=== PATIENT | female | born 1990 | race Two or more races ===

== ENCOUNTER → 2019-12-21 | Outpatient (CLI) | payer OTHER ==
[2019-12-21 16:19] LABS: BASO % 0.5 % (0.0-1.0); EOS # 0.1 10^3/uL (0.0-0.5); EOS % 1.7 % (0.0-3.0); HEMATOCRIT 37.7 % (36.0-47.0); HEMOGLOBIN 12.6 g/dl (12.0-15.5); LYMPH # 1.9 10^3/uL (1.5-5.0); LYMPH % 47.8 % (24.0-44.0); MEAN CORPUSCULAR HEMOGLOBIN 29.6 pg (27.0-33.0); MEAN CORPUSCULAR HGB CONC 33.4 g/dl (32.0-36.5); MEAN CORPUSCULAR VOLUME 88.5 fl (80.0-96.0); MONO # 0.3 10^3/uL (0.0-0.8); MONO % 8.4 % (0.0-5.0); NEUTROPHILS # 1.7 10^3/uL (1.5-8.5); NEUTROPHILS % 41.4 % (36.0-66.0); PLATELET COUNT, AUTOMATED 241 10^3/uL (150-450); RED BLOOD COUNT 4.26 10^6/uL (4.00-5.40)
[2019-12-21 16:28] LABS: ALBUMIN 3.8 GM/DL (3.2-5.2); ALT/SGPT 24 U/L (12-78); BILIRUBIN,TOTAL 0.8 MG/DL (0.2-1.0); BLOOD UREA NITROGEN 15 MG/DL (7-18); CALCIUM LEVEL 8.6 MG/DL (8.5-10.1); CARBON DIOXIDE LEVEL 25 MEQ/L (21-32); CHLORIDE LEVEL 108 MEQ/L (98-107); CREATININE FOR GFR 0.67 MG/DL (0.55-1.30); FERRITIN 18 NG/ML (8-252); FREE T4 1.02 NG/DL (0.76-1.46); GLOMERULAR FILTRATION RATE > 60.0 (>60); GLUCOSE, FASTING 85 MG/DL (70-100); IRON (FE) 124 UG/DL (50-170); PERCENT SATURATION 33.7 % (13.2-45.0); SODIUM LEVEL 140 MEQ/L (136-145); TOTAL 25(OH) VITAMIN D 17.5 NG/ML (30.0-100.0); TOTAL IRON BINDING CAPACITY 368 UG/DL (250-450); TOTAL PROTEIN 7.7 GM/DL (6.4-8.2)
== END ==
LOC: M LRY 11:06
PROVIDERS: ATTEND Physician Assistant
DX: Z13.29 Encounter for screening for other suspected endocrine disorder (principal)

== ENCOUNTER → 2020-09-01 | Outpatient (REF) | payer OTHER | LOC: M LAB REF 17:21 | PROVIDERS: ATTEND Family Medicine | DX: J06.9 Acute upper respiratory infection, unspecified (principal) ==

== ENCOUNTER → 2020-10-20 | Outpatient (CLI) | payer OTHER | LOC: M WUC 13:46 | PROVIDERS: ATTEND Family Medicine | DX: O20.0 Threatened abortion (principal); Z3A.00 Weeks of gestation of pregnancy not specified ==

== ENCOUNTER → 2020-10-24 | Outpatient (CLI) | payer OTHER | LOC: M WUC 15:30 | PROVIDERS: ATTEND Family Medicine | DX: O20.0 Threatened abortion (principal); Z3A.00 Weeks of gestation of pregnancy not specified ==

== ENCOUNTER → 2021-03-19 | Outpatient (CLI) | payer OTHER ==
[2021-03-19 17:40] LABS: BASO % 0.2 % (0.0-1.0); EOS # 0.1 10^3/uL (0.0-0.5); EOS % 1.1 % (0.0-3.0); HEMATOCRIT 37.8 % (36.0-47.0); HEMOGLOBIN 13.1 g/dl (12.0-15.5); LYMPH # 2.1 10^3/uL (1.5-5.0); LYMPH % 23.3 % (24.0-44.0); MEAN CORPUSCULAR HEMOGLOBIN 31.3 pg (27.0-33.0); MEAN CORPUSCULAR HGB CONC 34.7 g/dl (32.0-36.5); MEAN CORPUSCULAR VOLUME 90.2 fl (80.0-96.0); MONO # 0.6 10^3/uL (0.0-0.8); MONO % 6.8 % (2.0-8.0); NEUTROPHILS % 68.1 % (36.0-66.0); PLATELET COUNT, AUTOMATED 250 10^3/uL (150-450); RED BLOOD COUNT 4.19 10^6/uL (4.00-5.40); WHITE BLOOD COUNT 8.8 10^3/uL (4.0-10.0)
[2021-03-19 18:53] LABS: HIV 1&2 SCREEN CENTAUR NEGATIVE (NEGATIVE)
[2021-03-20 04:57] LABS: GC DNA AMPLIFICATION NEGATIVE (NEGATIVE)
== END ==
LOC: M PLALAB 15:47
PROVIDERS: ATTEND Advanced Practice Midwife
DX: O34.211 Maternal care for low transverse scar from previous cesarean delivery (principal); Z3A.00 Weeks of gestation of pregnancy not specified

== ENCOUNTER → 2021-04-02 | Outpatient (CLI) | payer OTHER | LOC: M PLALAB 07:08 | PROVIDERS: ATTEND Advanced Practice Midwife | DX: O34.211 Maternal care for low transverse scar from previous cesarean delivery (principal); Z3A.00 Weeks of gestation of pregnancy not specified ==

== ENCOUNTER → 2021-06-05 | Outpatient (CLI) | payer OTHER ==
--- NOTE | 2021-06-05 12:17 | REP ---
INDICATION: ANATOMY. COMPARISON: None. TECHNIQUE: Real-time sonographic evaluation of the gravid uterus performed. FINDINGS: Estimated gestational age is21 weeks 0 days, EDC 10/16/2021. Today's measurements indicate appropriate growth. Presentation: Transverse Placenta anterior, grade 1, without evidence of placenta previa. heart rate is recorded at 150 beats per minute. Amniotic fluid is subjectively normal. Closed cervical length is measured at 4.0 cm. Biometry chart: BPD: 50 mm, 21 weeks 1 days, 53rd percentile. HC: 191 mm, 21 weeks 3 days, 61st percentile AC: 168 mm, 21 weeks 5 days, 66th percentile Femur length: 37 mm, 21 weeks 5 days, 68th percentile HC to AC ratio: 1.14, normal range 1.05-1.24. Estimated weight: 442g, 80th percentile. anatomy: Cranium: Grossly normal Lateral Ventricles/Choroid Plexus: Grossly normal Posterior Fossa/Cerebellum: Grossly normal Nose/lips/profile: Grossly normal Four chamber heart: Grossly normal Right ventricular outflow tract: Grossly normal Left ventricular outflow tract: Grossly normal Left-sided stomach: Grossly normal Kidneys: Grossly normal Bladder: Grossly normal Cord Insertion: Grossly normal 3 vessel cord: Grossly normal Spine: Not well seen due to position. IMPRESSION: Viable single intrauterine gestation as above. <Electronically signed by Jeremy Saunders > 06/05/21 [id number]
== END ==
LOC: M WHC 08:19
PROVIDERS: ATTEND Advanced Practice Midwife
DX: Z36.9 Encounter for antenatal screening, unspecified (principal); Z3A.16 16 weeks gestation of pregnancy

== ENCOUNTER → 2021-06-19 | Outpatient (CLI) | payer OTHER ==
[2021-06-19 13:22] LABS: HEMATOCRIT 36.5 % (36.0-47.0); HEMOGLOBIN 12.7 g/dl (12.0-15.5); MEAN CORPUSCULAR HEMOGLOBIN 32.6 pg (27.0-33.0); MEAN CORPUSCULAR HGB CONC 34.8 g/dl (32.0-36.5); MEAN CORPUSCULAR VOLUME 93.6 fl (80.0-96.0); PLATELET COUNT, AUTOMATED 213 10^3/uL (150-450); WHITE BLOOD COUNT 8.8 10^3/uL (4.0-10.0)
[2021-06-19 13:45] LABS: GLUCOSE CHALLENGE TEST 1 HOUR 90 MG/DL (LESS THAN 140)
[2021-06-19 14:14] LABS: HEPATITIS B SURFACE ANTIGEN NEGATIVE (NEGATIVE)
[2021-06-19 14:41] LABS: HEPATITIS C VIRUS ABY INDEX 0.1 INDEX (<0.8)
[2021-06-19 14:42] LABS: HIV 1&2 SCREEN CENTAUR NEGATIVE (NEGATIVE)
[2021-06-19 16:50] LABS: GC DNA AMPLIFICATION NEGATIVE (NEGATIVE)
== END ==
LOC: M PLALAB 10:40
PROVIDERS: ATTEND Specialist
DX: Z34.82 Encounter for supervision of other normal pregnancy, second trimester (principal); Z3A.00 Weeks of gestation of pregnancy not specified

== ENCOUNTER → 2021-07-07 | Outpatient (CLI) | payer OTHER ==
--- NOTE | 2021-07-07 14:20 | REP ---
INDICATION: F/U ANATOMY COMPARISON: 06/05/2021 TECHNIQUE: Transabdominal obstetrical ultrasound with color Doppler evaluation. FINDINGS: Examination demonstrates a single live intrauterine in transverse presentation. motion is identified by technologist. Placenta is noted anterior and grade 1 without evidence for placenta previa or abruption. Amniotic fluid volume is normal. Cervix measures 3.8 cm in length and appears closed.. Selected gestational age: 25 weeks 4 days with CARLOS 10/16/2021. Gestational age by current measurements 26 weeks 0 days with CARLOS 10/13/2021. FHR equals 143 beats per minute. Estimated weight 848 grams (47thpercentile). Anatomical assessment demonstrates normal structures including images of the spine. IMPRESSION: Single live intrauterine in transverse lie demonstrating appropriate estimated weight and growth. In conjunction with prior examination anatomical assessment is complete and normal. <Electronically signed by Yonathan Harvey > 07/07/21 [id number]
== END ==
LOC: M WHC 07:31
PROVIDERS: ATTEND Specialist
DX: Z34.82 Encounter for supervision of other normal pregnancy, second trimester (principal); Z3A.25 25 weeks gestation of pregnancy

== ENCOUNTER → 2021-08-05 | Outpatient (REF) | payer OTHER ==
[~2021-08-05] MED LIST: ACET-683 PO; GUAI100L6 PO; MULTTAB20 PO; VENTAER INH
== END ==
LOC: M LAB REF 17:31
PROVIDERS: ATTEND Nurse Practitioner Adult Health
DX: J06.9 Acute upper respiratory infection, unspecified (principal)

== ENCOUNTER 2021-08-06 12:41 | Emergency (ER) | payer OTHER ==
[~2021-08-06] VITALS: Ht 154.9 cm; Wt 74.2 kg
[2021-08-06] MEDS ORDERED: MULTTAB20 PO (12:51)
[2021-08-06] MEDS ORDERED: ACET-683 PO (12:51)
[2021-08-06] MEDS ORDERED: VENTAER INH (17:45)
[2021-08-06] MEDS ORDERED: GUAI100L6 PO (17:45)
[2021-08-06 19:33] VITALS: BP 108/71
== END 2021-08-06 19:41 | disposition home or self-care (01) ==
LOC: M ED 12:41
DX: O98.513 Other viral diseases complicating pregnancy, third trimester (principal); U07.1 COVID-19; Z3A.30 30 weeks gestation of pregnancy; Z79.899 Other long term (current) drug therapy

== ENCOUNTER → 2021-09-24 | Outpatient (REF) | payer OTHER | LOC: M PLALAB 15:57 | PROVIDERS: ATTEND Specialist | DX: Z34.83 Encounter for supervision of other normal pregnancy, third trimester (principal) ==